=== PATIENT | female | born 1980 | race Caucasian/White ===

== ENCOUNTER 2016-07-05 15:58 | Emergency (ER) | payer BC ==
[2016-07-05] MEDS ORDERED: Pseudoephedrine HCL ER TAB* 120 MG PO ONE (17:57)
--- NOTE | 2016-07-05 18:32 | RAD ---
Indication: RIGHT eye pain, light sensitivity, ear pressure following injury. Comparison: None. Technique: Noncontrast CT vertex of skull through foramen magnum. Report: The sulci, ventricles, and basal cisterns are normal for age. Mulligan matter white matter differentiation is preserved without evidence for edema. No intra or extra axial hemorrhage, mass, or fluid collection detected. Unremarkable visualized orbital contents. Unremarkable calvarium and skull base. Unremarkable scalp. The visualized paranasal sinuses and mastoid air spaces are clear. IMPRESSION: No traumatic injury evident. Negative unenhanced head CT.
[2016-07-05 19:26] VITALS: BP 148/76
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
== END 2016-07-05 19:25 | disposition home or self-care (01) ==
LOC: ED 15:58
DX: S00.93XA Contusion of unspecified part of head, initial encounter (principal); R51 Headache; F17.210 Nicotine dependence, cigarettes, uncomplicated; X58.XXXA Exposure to other specified factors, initial encounter; Y93.9 Activity, unspecified; Y92.9 Unspecified place or not applicable; Y99.9 Unspecified external cause status
CPT/HCPCS: 70450; 99281; A9270-GY